=== PATIENT | male | born 1990 | race Hispanic/Latino ===

== ENCOUNTER 2025-03-23 02:15 | Emergency (ER) | payer OTHER ==
[~2025-03-23] VITALS: Ht 170.2 cm; Wt 69.9 kg
[2025-03-23] MEDS ORDERED: HYDROCODONE/ACETA 5/325 TAB PO ONE (02:45)
[2025-03-23] MEDS ORDERED: SILVER SULFADIAZINE 400 GM HOME.PACK TOP ONE ×2 (02:45→03:15)
[2025-03-23] MEDS ORDERED: DIPHTH,PERTUSS(ACELL),TET VAC 0.5 ML SYRINGE IM ONE (02:45)
[2025-03-23] MEDS ORDERED: SILVER SULFADIAZINE 50 GM JAR ONE (03:04)
[2025-03-23] MEDS ORDERED: SILVADENE20 GM TOP (03:11)
[2025-03-23] MEDS ORDERED: HYDROCODONE BIT/ACETAMINOPHEN 5/325 MG 1 TAB HOME.PACK PO ONE (03:15)
[2025-03-23 03:43] VITALS: BP 123/86
== END 2025-03-23 03:43 | disposition home or self-care (01) ==
LOC: ED 02:15
DX: T22.212A Burn of second degree of left forearm, initial encounter (principal); X10.2XXA Contact with fats and cooking oils, initial encounter
CPT/HCPCS: 16000; 90471; 90715; 99283-25; A9270